=== PATIENT | female | born 1995 | race Caucasian/White ===

== ENCOUNTER 2019-10-14 21:04 | Emergency (ER) | payer OTHER ==
[2019-10-14] MEDS ORDERED: diphenhydrAMINE HCL 25 MG CAP PO ONE (21:26)
[2019-10-14] MEDS ORDERED: predniSONE 20 MG TAB PO ONE (21:26)
--- NOTE | 2019-10-14 21:26 | ED.PDOC ---
History of Present Illness - General Chief Complaint: Allergic Reaction Stated Complaint: swelling Rt hand, bee sting Time Seen by Provider: 10/14/19 21:25 Source: patient Exam Limitations: no limitations - History of Present Illness Initial Comments: 23 yo otherwise healthy F who presents for bee sting to her R distal RF today now with diffuse swelling to hand. Pulled out stinger. Similar reactions to bee stings in the past. Denies weakness, numbness, f/c, SOB, wheezing, throat swelling, trauma, falls. Home Medications: Ambulatory Orders Acetamin W/Cod #3 Tab [Tylenol w/CODEINE #3] 1 ea PO Q6H #6 tab 10/14/19 Prednisone 60 mg PO DAILY #4 tab 10/14/19 Review of Systems - Review of Systems Constitutional: Denies: chills, fever Respiratory: Denies: short of breath, wheezing Cardiology: Denies: chest pain, palpitations Gastrointestinal/Abdominal: Denies: abdominal pain, diarrhea, vomiting Musculoskeletal: States: other - R hand swelling 2/2 bee sting Skin: Denies: change in color Neurological: Denies: numbness, weakness Family Medical History - Family History Mother Family History: Unknown Physical Exam - Physical Exam General Appearance: Alert, Comfortable, No apparent distress, Well Developed, Well Nourished Ears, Nose, Throat: normal ENT inspection Neck: full range of motion, supple Respiratory: lungs clear, normal breath sounds, no respiratory distress, no accessory muscle use Cardiovascular/Chest: normal peripheral pulses, regular rate, rhythm Peripheral Pulses: radial,right: 2+, radial,left: 2+ Extremity: other - Slight decreased ROM to R hand 2/2 swelling that is noted diffusely. Compartments soft. Small puncture wound to distal R RF, no foreing body. No erythema. 2+ pulses, cap refill <2sec. Neurologic: no motor/sensory deficits, alert, normal mood/affect Progress - Progress Progress: I have explained and reviewed all results with the pt. I explained that emergent conditions may arise and to return to the ER for new, worsening, or any persistent conditions. I've explained the importance of f/u for recheck. All questions and concerns addressed at this time. Pt understands and agrees with plan. Pt well appearing, NAD, is stable for discharge. Niecy Bustillo MD Emergency Medicine Physician Billing Number [id number] Departure - Departure Clinical Impression: Bee sting reaction Qualifiers: Encounter type: initial encounter Injury intent: accidental or unintentional Qualified Code(s): T63.441A - Toxic effect of venom of bees, accidental (unintentional), initial encounter Time of Disposition: 22:19 Disposition: Discharge to Home or Self Care Health Concerns: Condition: stable Departure Forms: ED Discharge - Pt. Copy, Patient Portal Self Enrollment Instructions: Insect Bites and Stings (DC) Referrals: Frederick Frank MD [Primary Care Provider] - 1-5 Days Prescriptions: Acetamin W/Cod #3 Tab [Tylenol w/CODEINE #3] 1 ea PO Q6H #6 tab Prednisone 60 mg PO DAILY #4 tab Home Medications: Ambulatory Orders Acetamin W/Cod #3 Tab [Tylenol w/CODEINE #3] 1 ea PO Q6H #6 tab 10/14/19 Prednisone 60 mg PO DAILY #4 tab 10/14/19
[2019-10-14 21:36] VITALS: TEMP 98
[2019-10-14 22:07] VITALS: BP 118/65; O2SAT 99
== END 2019-10-14 22:31 | disposition home or self-care (01) ==
LOC: ER 21:04
DX: T63.441A Toxic effect of venom of bees, accidental (unintentional), initial encounter (principal); M79.89 Other specified soft tissue disorders
CPT/HCPCS: J7512; Q0163

== ENCOUNTER 2019-10-21 15:31 | Emergency (ER) | payer OTHER ==
[2019-10-21] MEDS: ONDANSETRON ODT 8 MG TAB SL ONE (16:16)
[2019-10-21] MEDS: SODIUM CHLORIDE 0.9% 1000ML 1,000 ML IVS ONE ×2 (16:17→17:31)
[2019-10-21] MEDS: SUCRALFATE 1 GM/10 ML 1 GM UD PO ONE (16:56)
[2019-10-21] MEDS: HYDROcodone 7.5MG/APAP 325MG 1 EA TAB PO ONE (17:31)
[2019-10-21] MEDS ORDERED: PROMETHAZINE HCL INJ 25 MG/ML VIAL ONE (18:27)
[2019-10-21] MEDS ORDERED: SODIUM CHLORIDE 0.9% 50ML 50 ML ONE (18:27)
[2019-10-21] MEDS: PROMETHAZINE HCL INJ 25 MG in SODIUM CHLORIDE 0.9% 50ML 50 ML IVPB ONE (18:33)
[2019-10-21 18:39] VITALS: O2SAT 99
--- NOTE | 2019-10-21 19:35 | ED.PDOC ---
History of Present Illness - General Chief Complaint: Abdominal Pain Stated Complaint: abdominal pain Time Seen by Provider: 10/21/19 15:45 Source: patient Exam Limitations: no limitations - History of Present Illness Initial Comments: The patient is a 23-year-old female at approximately 11 weeks gestational age presenting secondary to 2 days of nausea and vomiting. The patient has been before and did have significant nausea and vomiting of . She reports that she has probably thrown up about 20 times. Her lower abdomen in general is sore from the vomiting. No real point tenderness. No rebound. No palpable mass. No hypotension. No fevers. She does still have an appetite. No vomiting of blood. No diarrhea. No syncope. She felt like she was getting dehydrated and her heart was racing so she showed up here. She is due to see her ASSOCIATE FACULTY this coming week. Timing/Duration: other - 2 days Severity: moderate Improving Factors: nothing Worsening Factors: eating Associated Symptoms: malaise, nausea/vomiting Allergies/Adverse Reactions: Allergies NO KNOWN ALLERGY Allergy (Verified 10/21/19 15:45) Home Medications: Ambulatory Orders Ondansetron Odt [Zofran ODT] 4 mg PO Q8HR PRN #5 tab 10/21/19 Vit W/ Ferrous Fumara [] 1 tab PO DAILY 10/21/19 Sucralfate Tab [Carafate Tab] 1 gm PO QID #60 tab 10/21/19 Review of Systems - Review of Systems Constitutional: States: malaise EENTM: States: no symptoms reported Respiratory: States: no symptoms reported Cardiology: States: no symptoms reported Gastrointestinal/Abdominal: States: abdominal pain, nausea, vomiting. Denies: constipation, diarrhea Genitourinary: States: no symptoms reported Musculoskeletal: States: no symptoms reported Skin: States: no symptoms reported Neurological: States: no symptoms reported Endocrine: States: no symptoms reported All other Systems: No Change from Baseline Past Medical History (General) - Patient Medical History Hx Seizures: No Hx Asthma: No Hx Cardiac Disorders: Yes - heart palpitations Hx Hypertension: No Hx Thyroid Disease: No Hx Renal Disease: No Hx Cancer: No Surgical History: no surgical history - Vaccination History Hx Tetanus, Diphtheria Vaccination: No Hx Influenza Vaccination: No Hx Pneumococcal Vaccination: No - Social History Hx Tobacco Use: Yes Hx Alcohol Use: No Family Medical History - Family History Mother Family History: Unknown Physical Exam - Physical Exam General Appearance: Alert, Comfortable, No apparent distress Eye Exam: bilateral normal Ears, Nose, Throat: hearing grossly normal, normal pharynx Neck: full range of motion, supple Respiratory: lungs clear, normal breath sounds, no respiratory distress, no accessory muscle use Cardiovascular/Chest: normal peripheral pulses, no edema, tachycardia - Regular Peripheral Pulses: radial,right: 2+, radial,left: 2+ Gastrointestinal/Abdominal: soft, other - Diffuse lower abdominal wall tenderness to palpation and with movement. No definite rebound. Rectal Exam: deferred, other - Pelvic exam shows normal discharge. No obvious cervical motion tenderness. No pain localizing to the right lower quadrant. Appropriate size uterus for gestational age. heart tones are in the 140s to 150s. Back Exam: no CVA tenderness, no vertebral tenderness Extremity: non-tender, normal inspection, no pedal edema, normal capillary refill Neurologic: motor setter II-XII nml as tested, alert, normal mood/affect, oriented x 3 Skin Exam: normal color Comments: Vital Signs - 24 hr 10/21/19 10/21/19 10/21/19 15:46 16:36 17:00 Temperature 98.0 F Pulse Rate [ 98 H 81 21 L left brachial] Respiratory 20 17 20 Rate Blood Pressure 127/83 129/78 128/76 [left brachial] O2 Sat by Pulse 99 98 96 Oximetry 10/21/19 10/21/19 18:30 18:36 Temperature 98.2 F Pulse Rate [ 77 76 left brachial] Respiratory 16 18 Rate Blood Pressure 115/74 121/73 [left brachial] O2 Sat by Pulse 99 99 Oximetry Progress - Progress Progress: 10/21/19 19:38 The patient is a 23-year-old female at approximately 11 weeks gestational age presenting secondary to nausea and vomiting. This is likely nausea and vomiting of combined with an acute viral gastroenteritis. Exam and presentation are not really consistent with appendicitis or a bacterial presentation. She will be written for Zofran for as needed use to control nausea and vomiting and will additionally be written for Carafate for the next couple of weeks as well. She does need to follow-up with her port engineer early this coming week. She needs to maintain a bland diet with small frequent meals and copious liquids. ER warnings were given for any significant worsening. jenn roldan [id number] - Results/Orders Results/Orders: 10/21/19 15:45 Telemetry .CONTINUOUS Telemetry shows mild sinus tachycardia down to normal sinus rhythm with rehydration. Laboratory Results - last 24 hr 10/21/19 10/21/19 10/21/19 16:04 16:04 16:04 WBC 15.6 H RBC 4.79 Hgb 14.9 Hct 40.9 MCV 85.4 MCH 31.1 H MCHC 36.4 RDW 14.7 H Plt Count 238 MPV 9.9 Absolute Neuts (auto) Not Reportable Absolute Lymphs (auto) Not Reportable Absolute Monos (auto) Not Reportable Absolute Eos (auto) Not Reportable Neutrophils % Not Reportable Neutrophils % (Manual) 80.0 H Lymphocytes % Not Reportable Lymphocytes % (Manual) 17.0 Monocytes % Not Reportable Monocytes % (Manual) 2.0 Eosinophils % Not Reportable Basophils % Not Reportable Eosinophils 1.0 Platelet Estimate Normal Normal RBC Morphology Normal rbc morph Sodium 135 Potassium 3.9 Chloride 100 L Carbon Dioxide 24 Anion Gap 14.9 BUN 12 Creatinine 0.42 L BUN/Creatinine Ratio 28.6 H Random Glucose 84 Serum Osmolality 269.1 L Calcium 9.9 Magnesium 1.9 Total Bilirubin 1.9 H AST 21 ALT 14 Alkaline Phosphatase 61 Serum Total Protein 8.2 Albumin 4.6 Globulin 3.6 H Albumin/Globulin Ratio 1.3 Amylase 22 L Lipase 28 TSH 1.90 Serum HCG, Qual Positive Urine Color Urine Appearance Urine pH Ur Specific [place] Urine Protein Urine Glucose (UA) Urine Ketones Urine Blood Urine Nitrite Urine Bilirubin Urine Urobilinogen Ur Leukocyte Esterase Urine RBC Urine WBC Ur Epithelial Cells Urine Bacteria 10/21/19 16:12 WBC RBC Hgb Hct MCV MCH MCHC RDW Plt Count MPV Absolute Neuts (auto) Absolute Lymphs (auto) Absolute Monos (auto) Absolute Eos (auto) Neutrophils % Neutrophils % (Manual) Lymphocytes % Lymphocytes % (Manual) Monocytes % Monocytes % (Manual) Eosinophils % Basophils % Eosinophils Platelet Estimate Normal RBC Morphology Sodium Potassium Chloride Carbon Dioxide Anion Gap BUN Creatinine BUN/Creatinine Ratio Random Glucose Serum Osmolality Calcium Magnesium Total Bilirubin AST ALT Alkaline Phosphatase Serum Total Protein Albumin Globulin Albumin/Globulin Ratio Amylase Lipase TSH Serum HCG, Qual Urine Color Yellow Urine Appearance Clear Urine pH 6.0 Ur Specific [place] 1.025 Urine Protein Negative Urine Glucose (UA) Negative Urine Ketones >=160 Urine Blood Trace-intact H Urine Nitrite Negative Urine Bilirubin Small H Urine Urobilinogen 0.2 Ur Leukocyte Esterase Negative Urine RBC 0 Urine WBC 0 Ur Epithelial Cells 3-5 Urine Bacteria Rare Departure - Departure Clinical Impression: Acute gastroenteritis, Dehydration Disposition: Discharge to Home or Self Care Condition: Fair Departure Forms: ED Discharge - Pt. Copy, Patient Portal Self Enrollment Instructions: Viral Gastroenteritis, Adult (DC) Diet: bland diet Activity: increase activity as tolerated Referrals: Aurea Navarrete MD [Primary Care Provider] - 1-2 Weeks Prescriptions: Ondansetron Odt [Zofran ODT] 4 mg PO Q8HR PRN #5 tab PRN Reason: Nausea--Moderate Sucralfate Tab [Carafate Tab] 1 gm PO QID #60 tab Home Medications: Ambulatory Orders Ondansetron Odt [Zofran ODT] 4 mg PO Q8HR PRN #5 tab 10/21/19 Vit W/ Ferrous Fumara [] 1 tab PO DAILY 10/21/19 Sucralfate Tab [Carafate Tab] 1 gm PO QID #60 tab 10/21/19 Additional Instructions: The patient is a 23-year-old female at approximately 11 weeks gestational age presenting secondary to nausea and vomiting. This is likely nausea and vomiting of combined with an acute viral gastroenteritis. Exam and presentation are not really consistent with appendicitis or a bacterial presentation. She will be written for Zofran for as needed use to control nausea and vomiting and will additionally be written for Carafate for the next couple of weeks as well. She does need to follow-up with her port engineer early this coming week. She needs to maintain a bland diet with small frequent meals and copious liquids. ER warnings were given for any significant worsening.
[2019-10-21 19:38] VITALS: BP 126/71; TEMP 97.8
[2019-10-21] MEDS ORDERED: ONDANSETRON ODT (ER DISP) 8 MG TAB PO ONE (19:43)
[2019-10-21] MEDS: ONDANSETRON ODT (ER DISP) 8 MG TAB PO ONE (19:58)
== END 2019-10-21 19:58 | disposition home or self-care (01) ==
LOC: ER 15:31
DX: O99.611 Diseases of the digestive system complicating pregnancy, first trimester (principal); K52.9 Noninfective gastroenteritis and colitis, unspecified; O99.281 Endocrine, nutritional and metabolic diseases complicating pregnancy, first trimester; E86.0 Dehydration; R00.0 Tachycardia, unspecified; O99.89 Other specified diseases and conditions complicating pregnancy, childbirth and the puerperium; Z3A.11 11 weeks gestation of pregnancy
CPT/HCPCS: 80053; 81001; 82150; 83690; 83735; 84443; 84703; 85025; 87502; A4216; J2550; J7030